=== PATIENT | female | born 1940 | race Two or more races ===

== ENCOUNTER → 2017-12-31 | Outpatient (CLI) | payer MEDICARE, BC ==
--- NOTE | 2018-01-06 09:55 | Diagnostic Imaging Report ---
#[id number] - [id number] #BILATERAL DIGITAL SCREENING MAMMOGRAM WITH CAD: 12/31/2017 CLINICAL: Routine screening. No prior exams were available for comparison. Current study contains 5 films. There are scattered fibroglandular elements in both breasts. Current study was also evaluated with a Computer Aided Detection (CAD) system. There are benign vascular calcifications in both breasts. There also are benign lymph nodes in both breasts. Additionally there are benign scattered calcifications in both breasts. There is a mole marker on both breasts. No significant masses, calcifications, or other findings are seen in either breast. IMPRESSION: BENIGN There is no mammographic evidence of malignancy. A 1 year screening mammogram is recommended. The patient will be notified by letter of the results. Ace lee/spencer:01/03/2018 14:09:48 Performance Tester: Wendy PETERSON)(Mir), [facility] letter sent: Normal Exam Mammogram BI-RADS: 2 Benign
== END ==
LOC: MAMMO 10:00
PROVIDERS: ATTEND Family Medicine
DX: Z12.31 Encounter for screening mammogram for malignant neoplasm of breast (principal)
CPT/HCPCS: 77067

== ENCOUNTER 2019-02-26 14:58 | Outpatient (RCR) | payer MEDICARE, BC ==
[~2019-02-26 14:58] MED LIST: AMARYL2 MG PO; DIOVAN HCT 80-1 EACH PO; ESTRACE1 MG PO; FARXIGA PO; JANUVIA100 MG PO; LANTUS 3ML100 UNITS/; LEVOCETIRIZINE D5 MG PO; LIPITOR20 MG PO
== END 2019-02-28 ==
LOC: PT 14:58
PROVIDERS: ATTEND Family Medicine
DX: M54.16 Radiculopathy, lumbar region (principal); M62.81 Muscle weakness (generalized); M54.5 Low back pain; M53.86 Other specified dorsopathies, lumbar region

== ENCOUNTER → 2019-12-15 | Day surgery (SDC) | payer MEDICARE, BC, OTHER ==
[~2019-12-15] MED LIST changes: +FENTANYL CITRATE/PF 100MCG/2 ML INJ ONE; -LANTUS 3ML100 UNITS/; +LANTUS 3ML100 UNITS/ SC; +MIDAZOLAM HCL 2 MG/2 ML VIAL ONE; +OR PHACO EYE KIT ONE; +PREOP PHACO EYE KIT ONE; +ULTRAM50 MG PO; +XARELTO20 MG PO
[2019-12-15 10:58] LABS: BASOPHILS # (AUTO) 0.1 (0.0-0.1); EOSINOPHILS # (AUTO) 0.2 (0.0-0.4); HEMOGLOBIN 14.8 g/dL (12.0-16.0); LYMPHOCYTES % 33.1 % (18.0-39.1); MEAN CORPUSCULAR HEMOGLOBIN 25.5 pg (28-32); MEAN CORPUSCULAR HGB CONC 31.5 g/dL (31-35); MEAN CORPUSCULAR VOLUME 80.9 fL (81-99); MONOCYTES % 10.9 % (4.4-11.3); NEUTROPHILS # (AUTO) 4.7 (2.1-6.9); NEUTROPHILS % 52.7 % (38.7-80.0); PLATELET COUNT 151 x10e3/uL (140-360); RED BLOOD COUNT 5.81 x10e6/uL (3.6-5.1); RED CELL DISTRIBUTION WIDTH 17.4 % (11.7-14.4)
[2019-12-15 12:55] VITALS: BP 168/85
== END | disposition home or self-care (01) ==
LOC: OR 09:25
PROVIDERS: ATTEND Ophthalmology
DX: H25.11 Age-related nuclear cataract, right eye (principal); I10 Essential (primary) hypertension; I48.91 Unspecified atrial fibrillation; E11.9 Type 2 diabetes mellitus without complications; K21.9 Gastro-esophageal reflux disease without esophagitis; M19.90 Unspecified osteoarthritis, unspecified site; E78.5 Hyperlipidemia, unspecified; Z88.0 Allergy status to penicillin; Z88.6 Allergy status to analgesic agent; Z91.041 Radiographic dye allergy status; Z01.812 Encounter for preprocedural laboratory examination; Z11.59 Encounter for screening for other viral diseases; Z79.84 Long term (current) use of oral hypoglycemic drugs; Z79.02 Long term (current) use of antithrombotics/antiplatelets; Z79.4 Long term (current) use of insulin
CPT/HCPCS: 36415; 82948; 85025; 87635; J2250; J3010

== ENCOUNTER → 2020-01-05 | Day surgery (SDC) | payer MEDICARE, BC, OTHER ==
[~2020-01-05] MED LIST changes: -FENTANYL CITRATE/PF 100MCG/2 ML INJ ONE; -MIDAZOLAM HCL 2 MG/2 ML VIAL ONE
[2020-01-05 12:15] VITALS: BP 173/94
== END | disposition home or self-care (01) ==
LOC: OR 08:48
PROVIDERS: ATTEND Ophthalmology
DX: H25.12 Age-related nuclear cataract, left eye (principal); I48.91 Unspecified atrial fibrillation; E11.9 Type 2 diabetes mellitus without complications; M19.90 Unspecified osteoarthritis, unspecified site; H91.90 Unspecified hearing loss, unspecified ear; I10 Essential (primary) hypertension; E78.5 Hyperlipidemia, unspecified; I83.90 Asymptomatic varicose veins of unspecified lower extremity; M54.9 Dorsalgia, unspecified; Z88.0 Allergy status to penicillin; Z88.6 Allergy status to analgesic agent; Z91.041 Radiographic dye allergy status; Z01.812 Encounter for preprocedural laboratory examination; Z11.59 Encounter for screening for other viral diseases; Z79.02 Long term (current) use of antithrombotics/antiplatelets; Z79.84 Long term (current) use of oral hypoglycemic drugs; Z79.4 Long term (current) use of insulin
CPT/HCPCS: 36415; 66984; 82948; 87635; V2632